=== PATIENT | female | born 2000 | race Hispanic/Latino ===

== ENCOUNTER 2021-03-07 17:00 | Inpatient (IN) | payer OTHER ==
[2021-03-07] MEDS ORDERED: Misoprostol 200 MCG TAB PR PRN (17:18)
[2021-03-07] MEDS ORDERED: Butorphanol Tartrate 1 MG/ML VIAL SLOW IVP PRN (17:18)
[2021-03-07] MEDS ORDERED: Ibuprofen 800 MG TAB PO PRN (17:18)
[2021-03-07] MEDS ORDERED: HYDROcodone/Acetaminophen 5/325 mg Tablet PO PRN (17:18)
[2021-03-07] MEDS ORDERED: Lidocaine 1% (PF) 30 ML VIAL SC PRN (17:18)
[2021-03-07] MEDS ORDERED: Ondansetron PF 4 MG/2 ML Vial IVP PRN ×2 (17:18→23:02)
[2021-03-07] MEDS ORDERED: Carboprost 250 MCG/ML AMP IM PRN (17:18)
[2021-03-07] MEDS ORDERED: Diphenoxylate HCl/Atropine Tablet PO PRN (17:18)
[2021-03-07] MEDS ORDERED: Promethazine HCl 25 MG/ML VIAL IM PRN ×2 (17:18→23:02)
[2021-03-07] MEDS ORDERED: Acetaminophen 500 MG TAB PO PRN (17:18)
[2021-03-07] MEDS ORDERED: Lactated Ringer's 1,000 ML IV SCH (17:30)
[2021-03-07 17:52] VITALS: BMI 29.9
[2021-03-07] MEDS ORDERED: NS w/ Oxytocin 30 units 500 ML IV PRN (18:05)
[2021-03-07] MEDS ORDERED: NS w/ Oxytocin 30 units 500 ML IVPB SCH ×2 (18:15)
[2021-03-07] MEDS ORDERED: Penicillin G Potassium 5 MILL.UNITS in Sodium Chloride 0.9% 100 ML IVPB SCH (18:30)
[2021-03-07 18:57] LABS: Hemoglobin 11.2 g/dL (12.0-15.5); Mean Corpuscular HGB CONC 31.9 g/dL (32.0-36.0); Mean Corpuscular Hemoglobin 26.2 pg (27.0-33.0); Mean Corpuscular Volume 82.2 fl (81.6-98.3); Mean Platelet Volume 11.6 fl (7.4-10.4); Platelet Count 199 10x3/uL (150-450); RBC Distribution Width 17.5 % (11.5-14.5); Red Blood Cell (RBC) Count 4.27 10x6/uL (3.90-5.03); White Blood Cell (WBC) Count 8.2 10x3/uL (3.5-10.5)
[2021-03-07 19:09] LABS: ALT (SGPT) 12 U/L (8-55); AST (SGOT) 17 U/L (5-34); Albumin 3.4 g/dL (3.5-5.0); Alkaline Phosphatase 254 U/L (40-100); Anion Gap 13 mmol/L (10-20); BUN (Urea Nitrogen) 10 mg/dL (7.0-18.7); Bilirubin, Total 0.2 mg/dL (0.2-1.2); Calc. Creatinine Clearance 161 mL/min (70-130); Calcium 8.8 mg/dL (7.8-10.44); Carbon Dioxide 21 mmol/L (22-29); Chloride 107 mmol/L (98-107); Glucose 71 mg/dL (70-105); Potassium 3.9 mmol/L (3.5-5.1); Protein, Total 6.4 g/dL (6.0-8.3); Sodium 137 mmol/L (136-145)
[2021-03-07 19:22] LABS: Creatinine, Urine 102.76 mg/dL (47-110)
[2021-03-07 19:27] LABS: Hep B Surf Ag Non-Reactive S/CO (NonReactive); Syphilis Antibody Nonreactive (Nonreactive); Syphilis Antibody Index 0.04 S/CO (<1.00 Non-Reactive)
[2021-03-07 19:32] LABS: HBSAg Index 0.14 S/CO (0-0.99)
[2021-03-07] MEDS ORDERED: Fentanyl 4 mcg/Bup 0.1% Cadd 100 ML ONE (22:19)
[2021-03-07] MEDS ORDERED: Penicillin G 2.5 MILL.units 2.5 MILL.UNITS in Premix Bag 1 BAG IVPB SCH (22:30)
[2021-03-07] MEDS: hydrALAZINE 20 MG/ML VIAL SLOW IVP PRN ×2 (22:45→23:51)
[2021-03-07] MEDS ORDERED: ePHEDrine 50 MG/ML VIAL SLOW IVP PRN (23:02)
[2021-03-07] MEDS ORDERED: Naloxone HCl 0.4 mg/ml Vial IVP PRN ×2 (23:02)
[2021-03-07] MEDS ORDERED: Eucerin (Mineral Oil/Petrolatum,White) 30 gm Jar TOP PRN (23:02)
[2021-03-07] MEDS ORDERED: diphenhydrAMINE 50 MG/ML VIAL IVP PRN (23:02)
[2021-03-07] MEDS ORDERED: Acetaminophen 325 MG TAB PO PRN (23:02)
[2021-03-07] MEDS ORDERED: Lactated Ringer's 500 ML IV PRN (23:02)
[2021-03-07] MEDS ORDERED: Fentanyl 4 mcg/Bupivacaine 0.1% Cassette 100 ML EPIDURAL SCH (23:15)
[2021-03-07] MEDS ORDERED: Communication Order-Pharmacy FS SCH (23:15)
[2021-03-08] MEDS ORDERED: Milk Of Magnesia 30 ML UDCUP PO PRN (03:26)
[2021-03-08] MEDS ORDERED: Bisacodyl 10 MG SUPP PR PRN (03:26)
[2021-03-08] MEDS ORDERED: HYDROcodone/Acetaminophen 5/325 mg Tablet PO PRN ×2 (03:26)
[2021-03-08] MEDS ORDERED: diphenhydrAMINE 25 MG CAP PO PRN (03:26)
[2021-03-08] MEDS ORDERED: Benzocaine-Menthol 82.5 ML CAN TOP PRN (03:26)
[2021-03-08] MEDS ORDERED: cloNIDine 0.1 MG TAB PO PRN (03:26)
[2021-03-08] MEDS ORDERED: Ondansetron PF 4 MG/2 ML Vial IVP PRN (03:26)
[2021-03-08] MEDS ORDERED: Magnesium Sulfate 20 GM/WATER 500 ML BAG IVPB SCH (03:26)
[2021-03-08] MEDS ORDERED: Calcium Gluconate 4.6 MEQ in Sodium Chloride 0.9% 100 ML IVPB PRN (03:26)
[2021-03-08] MEDS ORDERED: Magnesium Sulfate 20 gm/500 ml 20 GM/500 ML BAG IVPB SCH (03:26)
[2021-03-08] MEDS ORDERED: hydrALAZINE 20 MG/ML VIAL SLOW IVP PRN (03:26)
[2021-03-08] MEDS ORDERED: Promethazine HCl 25 MG/ML VIAL IM PRN (03:26)
[2021-03-08] MEDS ORDERED: Lanolin Ointment 7 GM TUBE TOP PRN (03:26)
[2021-03-08] MEDS ORDERED: Adacel (T-DAP) 0.5 ML SYRINGE IM ONE (03:26)
[2021-03-08] MEDS ORDERED: NS w/ Oxytocin 30 units 500 ML IV SCH (04:00)
[2021-03-08 04:35] LABS: SARS-CoV-2 PCR by NAA Not Detected (NotDetected)
[2021-03-08] MEDS: Ibuprofen 800 MG TAB PO SCH ×2 (11:01→21:35)
[2021-03-08] MEDS ORDERED: Lidocaine 2% MPF 10 ML AMP (For Epidural Use) ONE (19:43)
[2021-03-08] MEDS ORDERED: Bupivacaine 0.25% HCL 30 ML VIAL ONE (19:43)
[2021-03-08] MEDS: Docusate Calcium (SURFAK) 240 MG CAP PO SCH (21:34)
[2021-03-09] MEDS: Ibuprofen 800 MG TAB PO SCH ×3 (06:05→14:25)
[2021-03-09] MEDS: Ferrous Sulfate 325 MG TAB PO SCH ×2 (09:37→17:05)
[2021-03-09] MEDS: Docusate Calcium (SURFAK) 240 MG CAP PO SCH (09:41)
[2021-03-09] MEDS: Prenatal Vitamin 1 TAB PO SCH ×2 (09:41→09:42)
[2021-03-09] MEDS ORDERED: Losartan 25 MG TAB PO SCH (15:00)
[2021-03-09 15:38] VITALS: BP 125/67; TEMP 98.4
[2021-03-10] MEDS ORDERED: Losartan 25 MG TAB PO SCH (09:00)
== END 2021-03-09 18:35 | disposition home or self-care (01) | DRG 807 ==
LOC: CSHLD/OP 17:00 → CSHLD 17:04 → CSHANTE 03-09 00:27
PROVIDERS: ADMIT Family Medicine; ATTEND Family Medicine
PROC: 10E0XZZ Delivery of Products of Conception, External Approach (ICD-10-PCS; principal; 2021-03-08)
PROC: 0UQMXZZ Repair Vulva, External Approach (ICD-10-PCS; 2021-03-08)
DX: O71.82 Other specified trauma to perineum and vulva (principal); Z37.0 Single live birth; Z20.822 Contact with and (suspected) exposure to COVID-19; Z3A.38 38 weeks gestation of pregnancy; O70.9 Perineal laceration during delivery, unspecified
CPT/HCPCS: 36415; 51702; 80053; 82570; 83735; 84156; 85027; 86780; 86850; 86900; 86901; 87340; 87635; 90715; J0360; J2001; J2540; J2590; J3475; J3490; S0020; U0003; U0005

== ENCOUNTER 2022-07-15 12:24 | Outpatient (CLI) | payer OTHER | END 2022-07-15 12:25 | disposition home or self-care (01) | LOC: CSHULT 12:24 | PROVIDERS: ATTEND Family Medicine | DX: Z34.82 Encounter for supervision of other normal pregnancy, second trimester (principal); Z3A.20 20 weeks gestation of pregnancy | CPT/HCPCS: 76805 ==

== ENCOUNTER 2022-11-18 05:42 | Inpatient (IN) | payer OTHER ==
[2022-11-18 06:24] VITALS: BMI 29.7
[2022-11-18] MEDS ORDERED: hydrALAZINE 20 MG/ML VIAL SLOW IVP PRN ×3 (06:45→14:09)
[2022-11-18 07:47] LABS: Fetal Membranes Rupture RUPTURE DETECTED (No Rupture)
[2022-11-18] MEDS ORDERED: Bupivacaine 0.25% HCL 30 ML VIAL ONE (08:00)
[2022-11-18] MEDS ORDERED: Lidocaine 1% (PF) 30 ML VIAL SC PRN (08:16)
[2022-11-18] MEDS ORDERED: Methylergonovine 0.2 MG/ML VIAL IM PRN (08:16)
[2022-11-18] MEDS ORDERED: Ondansetron PF 4 MG/2 ML Vial IVP PRN ×3 (08:16→14:09)
[2022-11-18] MEDS ORDERED: Carboprost 250 MCG/ML AMP IM PRN (08:16)
[2022-11-18] MEDS ORDERED: Diphenoxylate HCl/Atropine Tablet PO PRN ×2 (08:16)
[2022-11-18] MEDS ORDERED: Ibuprofen 800 MG TAB PO PRN (08:16)
[2022-11-18] MEDS ORDERED: Butorphanol Tartrate 1 MG/ML VIAL SLOW IVP PRN (08:16)
[2022-11-18] MEDS ORDERED: Misoprostol 200 MCG TAB PR PRN (08:16)
[2022-11-18] MEDS ORDERED: HYDROcodone/Acetaminophen 5/325 mg Tablet PO PRN ×3 (08:16→14:09)
[2022-11-18] MEDS ORDERED: Acetaminophen 500 MG TAB PO PRN (08:16)
[2022-11-18] MEDS ORDERED: Promethazine HCl 25 MG/ML VIAL IM PRN ×3 (08:16→14:09)
[2022-11-18] MEDS ORDERED: NS w/ Oxytocin 30 units 500 ML IV SCH ×2 (08:30→14:09)
[2022-11-18] MEDS ORDERED: Lactated Ringer's 1,000 ML IV SCH (08:30)
[2022-11-18 09:03] LABS: Hemoglobin 12.3 g/dL (12.0-15.5); Mean Corpuscular HGB CONC 33.6 g/dL (32.0-36.0); Mean Corpuscular Volume 83.4 fl (81.6-98.3); Platelet Count 211 10x3/uL (150-450); RBC Distribution Width 14.4 % (11.5-14.5); Red Blood Cell (RBC) Count 4.39 10x6/uL (3.90-5.03); White Blood Cell (WBC) Count 10.3 10x3/uL (3.5-10.5)
[2022-11-18] MEDS ORDERED: Fentanyl 2 mcg/Bup 0.1% Cadd 100 ML ONE (09:22)
[2022-11-18 09:29] LABS: HBSAg Index 0.15 S/CO (0-0.99); Hep B Surf Ag Non-Reactive S/CO (NonReactive)
[2022-11-18 09:30] LABS: Syphilis Antibody Nonreactive (Nonreactive); Syphilis Antibody Index 0.06 S/CO (<1.00 Non-Reactive)
[2022-11-18] MEDS ORDERED: Naloxone HCl 0.4 mg/ml Vial IVP PRN ×2 (09:58)
[2022-11-18] MEDS ORDERED: diphenhydrAMINE 50 MG/ML VIAL IVP PRN (09:58)
[2022-11-18] MEDS ORDERED: ePHEDrine Sulfate 50 MG/10 ML VIAL SLOW IVP PRN (09:58)
[2022-11-18] MEDS ORDERED: Moisturizing Cream (Eucerin) 113 GM JAR TOP PRN (09:58)
[2022-11-18] MEDS ORDERED: Acetaminophen 325 MG TAB PO PRN (09:58)
[2022-11-18] MEDS ORDERED: Lactated Ringer's 500 ML IV PRN (09:58)
[2022-11-18] MEDS ORDERED: Fentanyl 2 mcg/Bupivacaine 0.1% Cassette 100 ML EPIDURAL SCH (10:00)
[2022-11-18] MEDS ORDERED: Communication Order-Pharmacy FS SCH (10:00)
[2022-11-18 11:45] LABS: SARS-CoV-2 NAA Rapid Test Not Detected (NotDetected)
[2022-11-18] MEDS ORDERED: Benzocaine-Menthol 82.5 ML CAN TOP PRN (14:09)
[2022-11-18] MEDS ORDERED: Milk Of Magnesia 30 ML UDCUP PO PRN (14:09)
[2022-11-18] MEDS ORDERED: Bisacodyl 10 MG SUPP PR PRN (14:09)
[2022-11-18] MEDS ORDERED: Lanolin Ointment 7 GM TUBE TOP PRN (14:09)
[2022-11-18] MEDS ORDERED: diphenhydrAMINE 25 MG CAP PO PRN (14:09)
[2022-11-18] MEDS ORDERED: Boostrix 0.5 ML (Tdap) VIAL (>/=7 yrs of age) IM ONE (14:09)
[2022-11-18] MEDS: Ibuprofen 800 MG TAB PO SCH ×2 (15:00→21:51)
[2022-11-18] MEDS: Ferrous Sulfate 325 MG TAB PO SCH (16:57)
[2022-11-18] MEDS: Docusate 100 MG CAP PO SCH (21:51)
[2022-11-19] MEDS: Ibuprofen 800 MG TAB PO SCH ×2 (05:03→14:11)
[2022-11-19] MEDS: Ferrous Sulfate 325 MG TAB PO SCH (08:28)
[2022-11-19] MEDS: Docusate 100 MG CAP PO SCH (08:28)
[2022-11-19] MEDS ORDERED: Prenatal Vitamin 1 TAB PO SCH (09:00)
[2022-11-19 11:21] VITALS: BP 96/57; TEMP 98.4
== END 2022-11-19 17:00 | disposition home or self-care (01) | DRG 807 ==
LOC: CSHLD/OP 05:42 → CSHLD 08:31 → CSHPED 14:03
PROVIDERS: ADMIT Family Medicine; ATTEND Family Medicine
PROC: 10E0XZZ Delivery of Products of Conception, External Approach (ICD-10-PCS; principal; 2022-11-18)
PROC: 10907ZC Drainage of Amniotic Fluid, Therapeutic from Products of Conception, Via Natural or Artificial Opening (ICD-10-PCS; 2022-11-18)
DX: O80 Encounter for full-term uncomplicated delivery (principal); Z37.0 Single live birth; Z3A.38 38 weeks gestation of pregnancy; Z20.822 Contact with and (suspected) exposure to COVID-19
CPT/HCPCS: 36415; 51702; 84112; 85027; 86780; 86850; 86900; 86901; 87340; 99285; J2590; J7120; S0020; U0002

== ENCOUNTER 2025-07-16 01:24 | Day surgery (SDC) | payer OTHER ==
[2025-07-16] MEDS ORDERED: hydrALAZINE 20 MG/ML VIAL SLOW IVP PRN (01:38)
[2025-07-16 01:48] VITALS: BMI 30.8
[2025-07-16] MEDS: Famotidine 20 MG TAB PO SCH (02:09)
[2025-07-16 03:15] LABS: Glucose, Urine (Dipstick) Normal (Negative); Leukocyte Negative (Negative); Protein, Urine (Dipstick) 15 mg/dl (Neg-Trace); Specific Gravity, Urine 1.010 (1.005-1.030)
[2025-07-16 03:20] LABS: #Basophils Less than 0.03 10x3/uL (0.0-0.2); #Eosinophils 0.08 10x3/uL (0.0-0.5); #Monocytes 0.68 10x3/uL (0.0-1.1); #Neutrophils 5.37 10x3/uL (1.5-8.4); %Basophils 0.1 % (0.0-2.0); %Eosinophils 1.0 % (0.0-6.0); %Lymphocytes 24.9 % (18.0-47.0); %Monocytes 8.2 % (0.0-10.0); %Neutrophils 65.0 % (40.0-75.0); ALT (SGPT) Less than 7 U/L (Less than 34); AST (SGOT) 16 U/L (11-34); Albumin 3.2 g/dL (3.1-4.5); Alkaline Phosphatase 126 U/L (40-110); Anion Gap 13 mmol/L (10-20); BUN (Urea Nitrogen) 6 mg/dL (7.0-18.7); Bilirubin, Total 0.2 mg/dL (0.3-1.2); Calc. Creatinine Clearance 164 mL/min (70-130); Calcium 9.5 mg/dL (7.8-10.44); Carbon Dioxide 23 mmol/L (22-29); Chloride 104 mmol/L (98-107); Globulin 4.1 g/dL (2.4-3.5); Glucose 120 mg/dL (70-105); Hematocrit 31.9 % (34.9-44.5); Hemoglobin 10.1 g/dL (12.0-15.5); Lipase 70 U/L (8-78); Mean Corpuscular Hemoglobin 25.7 pg (27.0-33.0); Mean Corpuscular Volume 81.2 fL (81.6-98.3); Platelet Count 223 10x3/uL (150-450); Potassium 3.8 mmol/L (3.5-5.1); Red Blood Cell (RBC) Count 3.93 10x6/uL (3.90-5.03); Sodium 136 mmol/L (136-145); White Blood Cell (WBC) Count 8.27 10x3/uL (3.5-10.5)
[2025-07-16 03:25] LABS: Bacteria/HPF None Seen HPF (None Seen); CAUTI Indications for Culture Pregnancy; RBC/HPF None Seen HPF (0-3); WBC/HPF None Seen HPF (0-3)
[2025-07-16 03:26] LABS: Urine Culture Reflex Yes Yes
[2025-07-16] MEDS: Cyclobenzaprine 10 MG TAB PO SCH (04:35)
== END 2025-07-16 04:35 | disposition home or self-care (01) ==
LOC: CSHLD/OP 01:24
PROVIDERS: ATTEND Family Medicine
DX: O99.891 Other specified diseases and conditions complicating pregnancy (principal); R10.11 Right upper quadrant pain; Z3A.34 34 weeks gestation of pregnancy; Z79.899 Other long term (current) drug therapy
CPT/HCPCS: 36415; 80053; 81001; 83690; 84156; 85025; 87086; 99284